=== PATIENT | female | born 1965 | race Caucasian/White ===

== ENCOUNTER → 2017-03-18 | Outpatient (CLI) | payer MEDICAID | LOC: FIMAGING 12:57 | PROVIDERS: ATTEND Family Medicine | DX: Z12.31 Encounter for screening mammogram for malignant neoplasm of breast (principal) | CPT/HCPCS: G0202 ==

== ENCOUNTER → 2017-05-05 | Outpatient (CLI) | payer MEDICAID | LOC: FIMAGING 10:24 | PROVIDERS: ATTEND Family Medicine | DX: K82.8 Other specified diseases of gallbladder (principal); R93.2 Abnormal findings on diagnostic imaging of liver and biliary tract ==

== ENCOUNTER → 2017-05-27 | Outpatient (CLI) | payer MEDICAID ==
[~2017-05-27] MED LIST: SINCALIDE 5 MCG VIAL IJ ONE
== END ==
LOC: FIMAGING 07:37
PROVIDERS: ATTEND Family Medicine
DX: K82.0 Obstruction of gallbladder (principal)
CPT/HCPCS: 78227; A9537